=== PATIENT | male | born 1930 | race Caucasian/White ===

== ENCOUNTER 2016-11-24 15:17 | Inpatient (IN) | payer MEDICARE ==
[~2016-11-24] VITALS: Ht 190.5 cm; Wt 56.1 kg
[~2016-11-24 15:17] MED LIST: AMARYL4 MG PO; ARICEPT 5MG PO; ASPIRIN E.C. 8181 MG PO; CEFTIN500 MG PO; CIPRO 500MG TA500 MG PO; FERROUS SULFATE65 MG PO; FISH OIL 1000MG1 CAP PO; GLUCOPHAGE1000 MG PO; IBU800 M1 PO; IPRATROPIUM BROM3 M1 IH; KLOR-CON M2020 MEQ PO; NITROSTAT0.4 MG/TAB SL; NORCO 325 MG-51 TAB PO; NORVASC 10MG10 MG PO; NORVASC 5MG5 MG/TAB PO; OMNICEF 300MG300 MG PO; PRINZIDE 12.5 M1 TA1 PO; SYSTANE GEL EYE10 ML OU; ZOCOR 20MG20 MG PO
[2016-11-24] MEDS ORDERED: ALDACTONE 25MG25 M1 PO (15:32)
[2016-11-24 16:01] LABS: BASO % 0.2 % (0.0-2.0); EOS % 0.1 % (0-4.0); GRAN # 19.3 (1.4-6.5); GRAN % 90.6 % (42.2-75.2); HEMATOCRIT 37.7 % (42.0-52.0); HEMOGLOBIN 12.9 g/dl (13.5-18.0); LYMPH % 4.5 % (20.0-51.0); MEAN CELL VOLUME 92 fl (80.0-100.0); MEAN CORPUSCULAR HEMOGLOBIN 32 pg (27.0-31.0); MEAN CORPUSCULAR HGB CONC 34 g/dl (33.0-37.0); MEAN PLATELET VOLUME 10.1 fl (7.4-10.4); MONO # 0.8 (0.1-0.6); MONO % 3.8 % (1.7-9.3); PLATELET COUNT 248 K/mm3 (130-400); RED BLOOD COUNT 4.09 M/mm3 (4.20-5.60); REDCELL DISTRIBUTION WIDTH-CV 12.3 % (11.5-14.5)
[2016-11-24 16:05] LABS: WHITE BLOOD COUNT 21.3 K/mm3 (4.8-10.8)
[2016-11-24 16:12] LABS: ADJUSTED CALCIUM 10.2 mg/dL (8.4-10.2); ALBUMIN 3.8 gm/dL (3.5-5.0); BILIRUBIN,TOTAL 1.3 mg/dL (0.0-1.0); CREATININE, serum 1.37 mg/dL (0.66-1.25); POTASSIUM 3.8 mmol/L (3.4-5.0); TOTAL PROTEIN 7.7 gm/dL (6.4-8.2)
[2016-11-24 17:04] LABS: HYALINE CAST >12 /lpf; PH 5 (5-8); SQUAMOUS EPITHELIAL 0-2 /hpf; URINE APPEARANCE Cloudy; URINE BACTERIA Many /hpf; URINE BILIRUBIN Negative (NEGATIVE); URINE BLOOD 2+ (NEGATIVE); URINE COLOR Yellow; URINE GLUCOSE 2+ (NEGATIVE); URINE KETONE Negative (NEGATIVE); URINE UROBILINOGEN Negative (NEGATIVE); URINE WBC >50 /hpf
[2016-11-24 17:51] LABS: INR 1.2 (0.8-3.0); PROTHROMBIN TIME 13.1 SECONDS (9.7-12.8)
[2016-11-24 19:05] VITALS: BP 155/68; PULSE 74; TEMP 98.4
[2016-11-25] VITALS (12 sets, daily range): BP systolic 126–177; BP diastolic 47–72; PULSE 57–84; TEMP 96.7–98.9
[2016-11-26 01:40] VITALS: BP 156/61; PULSE 66; TEMP 98.2
[2016-11-26 05:10] VITALS: BP 172/70; PULSE 72; TEMP 98
[2016-11-26 07:21] LABS: HEMATOCRIT 31.1 % (42.0-52.0); HEMOGLOBIN 10.2 g/dl (13.5-18.0)
[2016-11-26 07:31] LABS: CALCIUM 8.7 mg/dL (8.4-10.2); CREATININE, serum 1.2 mg/dL (0.66-1.25); POTASSIUM 3.7 mmol/L (3.4-5.0)
[2016-11-26 09:58] VITALS: BP 134/58; PULSE 80; TEMP 98.5
[2016-11-26 13:23] VITALS: BP 151/70; PULSE 81; TEMP 97.7
[2016-11-26 17:43] VITALS: BP 161/59; PULSE 76; TEMP 98.5
[2016-11-26 21:57] VITALS: BP 166/60; PULSE 65; TEMP 98.5
[2016-11-27 02:07] VITALS: BP 167/67; PULSE 67; TEMP 98.7
[2016-11-27 05:12] VITALS: BP 159/58; BP 170/60; PULSE 69; TEMP 98.3
[2016-11-27 07:08] LABS: HEMATOCRIT 25.8 % (42.0-52.0); HEMOGLOBIN 8.7 g/dl (13.5-18.0)
[2016-11-27 08:07] LABS: CALCIUM 8.8 mg/dL (8.4-10.2); CREATININE, serum 0.99 mg/dL (0.66-1.25); POTASSIUM 3.4 mmol/L (3.4-5.0)
[2016-11-27 09:36] VITALS: BP 160/57; PULSE 77; TEMP 98
[2016-11-27 13:23] VITALS: BP 168/64; PULSE 88; TEMP 98.3
[2016-11-27 18:14] VITALS: BP 149/54; PULSE 78; TEMP 98.1
[2016-11-27 21:53] VITALS: BP 163/61; PULSE 77; TEMP 97.5
[2016-11-28 01:50] VITALS: BP 160/65; PULSE 89; TEMP 97.1
[2016-11-28 05:21] VITALS: BP 120/68; PULSE 81; TEMP 98.2
[2016-11-28 07:13] LABS: HEMATOCRIT 26.1 % (42.0-52.0); HEMOGLOBIN 8.7 g/dl (13.5-18.0)
[2016-11-28] MEDS ORDERED: AMBIEN 5MG TABLE5 MG PO (08:33)
[2016-11-28] MEDS ORDERED: VITAMINC1000TA PO (08:33)
[2016-11-28] MEDS ORDERED: TYLENOL 325MG325 MG PO (08:33)
[2016-11-28] MEDS ORDERED: FERROUS SU325 MG/TAB PO (08:33)
[2016-11-28] MEDS ORDERED: VANTIN100 MG PO (08:33)
[2016-11-28] MEDS ORDERED: OYSCO 500500 M1 PO (08:33)
[2016-11-28] MEDS ORDERED: CLARITIN 1010 MG/TAB PO (08:33)
[2016-11-28] MEDS ORDERED: NOVOLOG FLEX100 U/ML SQ (08:33)
[2016-11-28] MEDS ORDERED: MULTI VITAMINS1 TAB PO (08:33)
[2016-11-28] MEDS ORDERED: XARELTO10 MG PO (08:45)
[2016-11-28] MEDS ORDERED: LEVEMIR FLEX100 U/ML SQ (09:08)
[2016-11-28 10:18] VITALS: BP 127/57; PULSE 66; TEMP 98
[2016-11-28 11:28] VITALS: BP 127/57; PULSE 66; TEMP 98
[2016-11-28 12:14] VITALS: BP 127/57; PULSE 66; TEMP 98
== END 2016-11-28 12:20 | DRG 470 ==
LOC: COL.ER 15:17 → SURG 18:06
PROVIDERS: Emergency Medicine; Orthopaedic Surgery; Physician Assistant
PROC: 0SRS0J9 Replacement of Left Hip Joint, Femoral Surface with Synthetic Substitute, Cemented, Open Approach (ICD-10-PCS; principal; 2016-11-25 08:00)
DX: S72.002A Fracture of unspecified part of neck of left femur, initial encounter for closed fracture (principal); T83.511A Infection and inflammatory reaction due to indwelling urethral catheter, initial encounter; I69.354 Hemiplegia and hemiparesis following cerebral infarction affecting left non-dominant side; N17.9 Acute kidney failure, unspecified; Z66 Do not resuscitate; I10 Essential (primary) hypertension; E11.42 Type 2 diabetes mellitus with diabetic polyneuropathy; W18.30XA Fall on same level, unspecified, initial encounter; N31.9 Neuromuscular dysfunction of bladder, unspecified; E86.0 Dehydration; Z79.4 Long term (current) use of insulin; F03.90 Unspecified dementia, unspecified severity, without behavioral disturbance, psychotic disturbance, mood disturbance, and anxiety; B96.89 Other specified bacterial agents as the cause of diseases classified elsewhere; E11.649 Type 2 diabetes mellitus with hypoglycemia without coma; D64.9 Anemia, unspecified; L89.612 Pressure ulcer of right heel, stage 2
CPT/HCPCS: 99222-AI; 99232-AI; 99239; A6197; A6207; C1713; C1776; C9113; J0171; J0690; J0696; J1815; J1885; J2250; J2405; J2704; J2765; J3010; J7030; J7120

== ENCOUNTER → 2017-01-03 | Outpatient (CLI) | payer OTHER, MEDICARE ==
[~2017-01-03] MED LIST changes: +ALDACTONE 25MG25 M1 PO; +AMBIEN 5MG TABLE5 MG PO; +CLARITIN 1010 MG/TAB PO; +FERROUS SU325 MG/TAB PO; +LEVEMIR FLEX100 U/ML SQ; +MULTI VITAMINS1 TAB PO; +NOVOLOG FLEX100 U/ML SQ; +OYSCO 500500 M1 PO; +TYLENOL 325MG325 MG PO; +VANTIN100 MG PO; +VITAMINC1000TA PO; +XARELTO10 MG PO
== END ==
LOC: COL.RAD 13:30
DX: S72.092D Other fracture of head and neck of left femur, subsequent encounter for closed fracture with routine healing (principal); M16.12 Unilateral primary osteoarthritis, left hip; X58.XXXD Exposure to other specified factors, subsequent encounter